=== PATIENT | female | born 1995 | race Asian ===

== ENCOUNTER 2021-06-03 05:35 | Inpatient (IN) | payer OTHER ==
[2021-06-03] MEDS ORDERED: PROMETHAZINE HCL 25 MG/1 ML VIAL IVPUSH PRN (06:07)
[2021-06-03] MEDS ORDERED: AMPICILLIN - 2 GM in SODIUM CHLORIDE 100 ML IVPB ONE (06:07)
[2021-06-03] MEDS ORDERED: BUTORPHANOL TARTRATE 1 MG/ML VIAL IVPB PRN (06:07)
[2021-06-03] MEDS ORDERED: ELECTROLYTE-148 SOLN 1,000 ML IV SCH (06:15)
[2021-06-03] MEDS ORDERED: AMPICILLIN SODIUM 2 GM VIAL ONE (06:20)
[2021-06-03 07:04] VITALS: BMI 32.1
[2021-06-03 07:29] LABS: BASO % 0.3 % (0-2.0); EOS % 0.8 % (0-4.5); HEMATOCRIT 33.1 % (32.4-45.2); HEMOGLOBIN 11.4 GM/dL (10.7-15.3); MCH 31.6 pg (25.7-33.7); MCHC 34.3 g/dl (32.0-36.0); MEAN CELL VOLUME 92.1 fl (80-96); MEAN PLT VOLUME 8.6 fl (7.5-11.1); MONO % 8.5 % (3.8-10.2); NEUT % 81.4 % (42.8-82.8); PLATELET COUNT 241 10^3/uL (134-434); RBC 3.59 M/mm3 (3.60-5.2); RDW 12.5 % (11.6-15.6); WHITE BLOOD COUNT 10.9 K/mm3 (4.0-10.0)
[2021-06-03 07:31] LABS: BLOOD UREA NITROGEN 14.5 mg/dL (7-18); CALCIUM 8.8 mg/dL (8.5-10.1)
[2021-06-03 07:33] LABS: CREATININE 0.5 mg/dL (0.55-1.3)
[2021-06-03 07:35] LABS: INR 0.87 (0.83-1.09)
[2021-06-03 07:38] LABS: ACTIVATED PTT 26.4 SECONDS (25.2-36.5)
[2021-06-03] MEDS ORDERED: PROMETHAZINE HCL 25 MG/1 ML VIAL ONE (07:40)
[2021-06-03] MEDS ORDERED: BUTORPHANOL TARTRATE 2 MG/ML VIAL ONE (07:40)
[2021-06-03] MEDS ORDERED: AMPICILLIN SODIUM 1 GM VIAL ONE (09:48)
[2021-06-03] MEDS: AMPICILLIN - 1 GM in SODIUM CHLORIDE 100 ML IVPB SCH ×3 (10:16→18:57)
[2021-06-03] MEDS ORDERED: FENTANYL/BUPIVACAINE/NS/PF - PCEA - 50 ML DISP.SYRIN EP ONE (10:59)
[2021-06-03] MEDS ORDERED: NALOXONE HCL 0.4 MG/ML VIAL IVPUSH PRN (11:56)
[2021-06-03] MEDS ORDERED: FENTANYL/BUPIVACAINE/NS/PF - PCEA - 50 ML DISP.SYRIN EP SCH (12:00)
[2021-06-03] MEDS ORDERED: OXYTOCIN 30 UNITS in 0.9% NS 30 UNIT/500 ML INFUS.BAG IVPB ONE (12:34)
[2021-06-03] MEDS ORDERED: OXYTOCIN 30 UNITS in 0.9% NS 30 UNIT/500 ML INFUS.BAG IVPB SCH (13:00)
[2021-06-03] MEDS ORDERED: OXYTOCIN 20 UNITS in 0.9% NS 20 UNIT/1,000 ML INFUS.BAG IV ONE (13:01)
[2021-06-03] MEDS ORDERED: OXYTOCIN 10 UNITS/ML VIAL ONE (13:50)
[2021-06-03] MEDS ORDERED: WITCH HAZEL 50% (TUCKS) 40 PAD/JAR PAD TP PRN (14:04)
[2021-06-03] MEDS ORDERED: oxyCODONE HCL 5 MG TABLET PO PRN (14:04)
[2021-06-03] MEDS ORDERED: BISACODYL 10 MG SUPP.RECT RC PRN (14:04)
[2021-06-03] MEDS ORDERED: BENZOCAINE 28 GM HEMORRHOIDAL OINTMENT TP PRN (14:04)
[2021-06-03] MEDS ORDERED: METHYLERGONOVINE MALEATE 0.2 MG/1 ML AMP IM PRN (14:04)
[2021-06-03] MEDS ORDERED: BENZOCAINE 20% 57 GM BOTTLE TP PRN (14:04)
[2021-06-03] MEDS ORDERED: ACETAMINOPHEN 325 MG TABLET (FP) PO PRN (14:04)
[2021-06-03] MEDS ORDERED: OXYTOCIN 20 UNITS in 0.9% NS 20 UNIT/1,000 ML INFUS.BAG IV SCH (14:15)
[2021-06-04 08:13] LABS: BASO % 0.3 % (0-2.0); EOS % 0.7 % (0-4.5); HEMATOCRIT 31.2 % (32.4-45.2); HEMOGLOBIN 10.4 GM/dL (10.7-15.3); MCH 31.1 pg (25.7-33.7); MCHC 33.4 g/dl (32.0-36.0); MEAN CELL VOLUME 93.2 fl (80-96); MEAN PLT VOLUME 8.2 fl (7.5-11.1); MONO % 10.2 % (3.8-10.2); NEUT % 78.8 % (42.8-82.8); PLATELET COUNT 219 10^3/uL (134-434); RBC 3.35 M/mm3 (3.60-5.2); RDW 12.9 % (11.6-15.6); WHITE BLOOD COUNT 14.2 K/mm3 (4.0-10.0)
[2021-06-04 09:29] VITALS: PULSE 83
[2021-06-04] MEDS: IBUPROFEN 600 MG TABLET (FP) PO PRN (19:37)
[2021-06-04 21:55] VITALS: TEMP 98.3
[2021-06-04] MEDS ORDERED: SENNOSIDES/DOCUSATE COMBO (SENNA PLUS) TABLET (UD) PO PRN (22:00)
[2021-06-05] MEDS: IBUPROFEN 600 MG TABLET (FP) PO PRN (10:39)
[2021-06-05 13:30] VITALS: BP 142/87
== END 2021-06-05 13:50 | disposition home or self-care (01) | DRG 560 ==
LOC: JDEL 05:35 → JLDR 05:40 → J3W 15:53
PROVIDERS: ADMIT Specialist; ATTEND Specialist
PROC: 10E0XZZ Delivery of Products of Conception, External Approach (ICD-10-PCS; principal; 2021-06-03)
DX: O70.0 First degree perineal laceration during delivery (principal); O98.82 Other maternal infectious and parasitic diseases complicating childbirth; B95.1 Streptococcus, group B, as the cause of diseases classified elsewhere; Z3A.37 37 weeks gestation of pregnancy; Z37.0 Single live birth
CPT/HCPCS: 36415; 59409; 80048; 81003; 82977; 83010; 84450; 84460; 84550; 85025; 85032; 85045; 85610; 85730; 86780; 86850; 86900; 86901; C9803-CS; U0003; U0005

== ENCOUNTER 2022-08-11 08:55 | Inpatient (IN) | payer OTHER ==
[2022-08-11] MEDS ORDERED: AMPICILLIN - 2 GM in SODIUM CHLORIDE 100 ML IVPB ONE (14:42)
[2022-08-11] MEDS ORDERED: ELECTROLYTE-148 SOLN 1,000 ML IV SCH (14:45)
[2022-08-11] MEDS ORDERED: OXYTOCIN 30 UNITS in 0.9% NS 30 UNIT/500 ML INFUS.BAG IVPB SCH (14:45)
[2022-08-11] MEDS ORDERED: AMPICILLIN SODIUM 2 GM VIAL ONE (14:48)
[2022-08-11 15:06] VITALS: BMI 33.1
[2022-08-11 15:17] LABS: BASO % 0.2 % (0-2.0); EOS % 0.6 % (0-4.5); HEMATOCRIT 34.6 % (32.4-45.2); HEMOGLOBIN 11.7 GM/dL (10.7-15.3); LYMPH % 11.7 % (8-40); MCH 29.5 pg (25.7-33.7); MCHC 33.7 g/dl (32.0-36.0); MEAN CELL VOLUME 87.5 fl (80-96); MEAN PLT VOLUME 7.6 fl (7.5-11.1); MONO % 7.1 % (3.8-10.2); NEUT % 80.4 % (42.8-82.8); PLATELET COUNT 233 10^3/uL (134-434); RBC 3.95 M/mm3 (3.60-5.2); RDW 13.1 % (11.6-15.6); WHITE BLOOD COUNT 11.4 K/mm3 (4.0-10.0)
[2022-08-11 15:21] LABS: INR 0.96 (0.83-1.09); PROTHROMBIN TIME (PATIENT) 11.1 SEC (9.7-13.0)
[2022-08-11 15:23] LABS: ACTIVATED PTT 27.3 SECONDS (25.2-36.5)
[2022-08-11 15:33] LABS: POTASSIUM 3.9 mmol/L (3.5-5.1)
[2022-08-11 15:34] LABS: CALCIUM 8.8 mg/dL (8.5-10.1)
[2022-08-11 15:35] LABS: BLOOD UREA NITROGEN 7.2 mg/dL (7-18)
[2022-08-11 15:38] LABS: CREATININE 0.4 mg/dL (0.55-1.3)
[2022-08-11] MEDS ORDERED: OXYTOCIN 20 UNITS in 0.9% NS 20 UNIT/1,000 ML INFUS.BAG IV ONE (15:54)
[2022-08-11] MEDS ORDERED: LIDOCAINE HCL 1% PRESERVATIVE FREE - 30ML VIAL ONE (15:54)
[2022-08-11] MEDS ORDERED: OXYTOCIN 20 UNITS in 0.9% NS 20 UNIT/1,000 ML INFUS.BAG IV SCH (16:15)
[2022-08-11] MEDS ORDERED: METHYLERGONOVINE MALEATE 0.2 MG/1 ML AMP IM PRN (16:15)
[2022-08-11] MEDS ORDERED: oxyCODONE HCL 5 MG TABLET PO PRN (16:15)
[2022-08-11] MEDS ORDERED: WITCH HAZEL 50% (TUCKS) 40 PAD/JAR PAD TP PRN (16:15)
[2022-08-11] MEDS ORDERED: ACETAMINOPHEN 325 MG TABLET (FP) PO PRN (16:15)
[2022-08-11] MEDS ORDERED: BENZOCAINE 20% 57 GM BOTTLE TP PRN (16:15)
[2022-08-11] MEDS ORDERED: BISACODYL 10 MG SUPP.RECT RC PRN (16:15)
[2022-08-11] MEDS ORDERED: BENZOCAINE 28 GM HEMORRHOIDAL OINTMENT TP PRN (16:15)
[2022-08-11 16:41] LABS: HIV INTERPRETATION NEGATIVE (NEGATIVE)
[2022-08-11] MEDS ORDERED: AMPICILLIN - 1 GM in SODIUM CHLORIDE 100 ML IVPB SCH (18:45)
[2022-08-11 20:06] LABS: METHADONE, UR NEGATIVE (NEGATIVE); PHENCYCLIDINE,URINE NEGATIVE (NEGATIVE); URINE BENZODIAZEPINES NEGATIVE (NEGATIVE)
[2022-08-11 20:07] LABS: OPIATES, URI NEGATIVE (NEGATIVE); URINE BARBITURATES NEGATIVE (NEGATIVE)
[2022-08-11 20:21] LABS: COCAINE, UR NEGATIVE (NEGATIVE); URINE AMPHETAMINES NEGATIVE (NEGATIVE)
[2022-08-11] MEDS: IBUPROFEN 600 MG TABLET (FP) PO PRN (23:18)
[2022-08-12] MEDS: IBUPROFEN 600 MG TABLET (FP) PO PRN ×3 (05:35→22:48)
[2022-08-12 07:56] LABS: BASO % 0.3 % (0-2.0); EOS % 0.9 % (0-4.5); HEMATOCRIT 33.7 % (32.4-45.2); HEMOGLOBIN 11.1 GM/dL (10.7-15.3); LYMPH % 12.8 % (8-40); MCH 29.5 pg (25.7-33.7); MCHC 32.9 g/dl (32.0-36.0); MEAN CELL VOLUME 89.4 fl (80-96); MEAN PLT VOLUME 8.3 fl (7.5-11.1); MONO % 7.9 % (3.8-10.2); NEUT % 78.1 % (42.8-82.8); PLATELET COUNT 247 10^3/uL (134-434); RBC 3.77 M/mm3 (3.60-5.2); RDW 13.1 % (11.6-15.6); WHITE BLOOD COUNT 12.1 K/mm3 (4.0-10.0)
[2022-08-12] MEDS: PRENATAL VITAMINS W/ FOLIC ACID TABLET (FP) PO SCH (09:45)
[2022-08-12 10:49] VITALS: RESP 18
[2022-08-12] MEDS ORDERED: SENNOSIDES/DOCUSATE COMBO (SENNA PLUS) TABLET (UD) PO PRN (22:00)
[2022-08-12 22:56] VITALS: TEMP 97.6
[2022-08-13] MEDS: IBUPROFEN 600 MG TABLET (FP) PO PRN ×2 (05:36→09:01)
[2022-08-13] MEDS: PRENATAL VITAMINS W/ FOLIC ACID TABLET (FP) PO SCH (09:00)
[2022-08-13 10:09] VITALS: BP 115/65; PULSE 80
[2022-08-14 13:37] LABS: POC NITRAZINE POS
== END 2022-08-13 12:35 | disposition home or self-care (01) | DRG 560 ==
LOC: JDEL 08:55 → JLDR 14:25 → J3W 18:19
PROVIDERS: ADMIT Obstetrics & Gynecology; ATTEND Obstetrics & Gynecology
PROC: 0HQ9XZZ Repair Perineum Skin, External Approach (ICD-10-PCS; principal; 2022-08-11)
PROC: 10E0XZZ Delivery of Products of Conception, External Approach (ICD-10-PCS; 2022-08-11)
DX: O70.0 First degree perineal laceration during delivery (principal); Z3A.38 38 weeks gestation of pregnancy; Z37.0 Single live birth
CPT/HCPCS: 36415; 59025; 76819-TC; 80048; 80307; 83986-QW; 85025; 85610; 85730; 86780; 86850; 86900; 86901; 87389